=== PATIENT | female | born 1950 | race Caucasian/White ===

== ENCOUNTER → 2019-12-25 | Outpatient (CLI) | payer MEDICARE ==
[~2019-12-25] MED LIST: ATOR20TA58 PO; CALC500T54 PO; CHOL500062 PO; IOHEXOL 180 MG/ML 10 ML VIAL. ONE; LEVO125T5 PO; LISI-338 PO; LORA10TA55 PO; METF500T16 PO; MONT10TA49 PO; OMEP20CA16 PO; ROPI1TAB4 PO; SERT100T PO; methylPREDNISolone ACETATE 40 MG/ML VIAL. ONE; methylPREDNISolone ACETATE 80 MG/ML VIAL. ONE
--- NOTE | 2019-12-25 14:26 | PAIN ---
DATE OF SERVICE: 12/25/2019 INITIAL CONSULTATION FOR PAIN CLINIC CHIEF COMPLAINT: Low back and right lower extremity pain. HISTORY OF PRESENT ILLNESS: This is a 69-year-old female who presents with history of pain in the low back and right lower extremity on and off in intensity for many years, but worse over the past 2 months without any specific injury or accident that she is aware of, that has been getting worse in the low back, radiating to the posterior gluteus, posterior thigh on the right side only, worse with walking, standing, changing positions, better with sitting or lying down. The patient reports it awakens her from sleep about every 4 hours or so, but does not cause any incontinence. It does cause some increased urgency, but no loss of bowel or bladder control. The patient reports it does affect her ability to walk significantly when she using a cane and has it with her today which she holds in her left hand. The patient reports the pain is constant, shooting with tingling in the low back and right leg, aching with radiation into the leg, rates her disability rating from 0-10, 10 being the worst, is a 10 with family and home responsibilities, 6 with recreation, 9 with social activity, self-care and life support activities, 8 with occupation, 0 with sexual behavior. The patient did have a MRI scan of the lumbar spine showing disk space narrowing at L5-S1, 7 mm of anterolisthesis of L5 with the focal left paracentral disk extrusion, proceeded cephalad to the disk space. The patient reports no loss of motor function, but significant fatigability of the right lower extremity with walking, standing, changing positions, better with sitting or resting. The patient has had epidural injections in the past, physical therapy, exercise, all of which have helped decrease the pain, is also taking ropinirole and Tylenol, which decreases the pain the most. She has tried other muscle relaxants, but tizanidine is also helped in the past. The patient reports most recent epidural injection was in 2019, she believes in the summertime. PAST MEDICAL HISTORY: Significant for type 2 diabetes, dizziness, arthritis, gastroesophageal reflux. PAST SURGICAL HISTORY: Previous surgeries include hysterectomy, thyroidectomy, carpal tunnels, ankle pinning bilaterally, and plates in the left foot, knee arthroscopy on the right in 2013 and 2017, cataract extraction, and oophorectomy in the past. CURRENT MEDICATIONS: Include omeprazole, ropinirole, sertraline, metformin, montelukast, lisinopril, calcium, levothyroxine, vitamin D, atorvastatin. ALLERGIES: THE PATIENT IS ALLERGIC TO NAPROXEN. FAMILY HISTORY: Significant for cancers. SOCIAL HISTORY: The patient does not drink alcohol, does not smoke, does not use any illegal, illicit or recreational drugs. The patient is , lives locally in [place], [place], and is currently retired. REVIEW OF SYSTEMS: The patient's review of systems is positive for those items mentioned in history of present illness. All systems reviewed and otherwise negative. It is complete, full and well documented on the patient's chart. PHYSICAL EXAMINATION: VITAL SIGNS: The patient's blood pressure is 136/85, pulse 67, respirations 18, temperature 97.9 degrees Fahrenheit, height is 5 feet, weight is 191 pounds. GENERAL: The patient is awake, alert, oriented, appropriate, very pleasant demeanor. HEENT: Shows normocephalic, atraumatic. Extraocular movements are intact and symmetrical. Oral cavity: Mucous membranes moist and pink. Dentition is intact. NECK: Shows anterior throat supple without palpable lymphadenopathy noted. Swallow reflex symmetrical. CHEST: Shows normal on inspection. Breath sounds are clear bilaterally. HEART: Shows S1, S2 clear. No murmurs auscultated. ABDOMEN: Soft, nontender, nondistended. No palpable organomegaly is noted. No rebound or guarding demonstrated. BACK: Shows spine grossly in the midline. Normal appearing thoracic kyphosis and minor flattening of the lumbar lordotic curvature. Lumbar paraspinous muscle shows symmetrical on inspection. On palpation, some moderate tenderness diffusely bilaterally, but only diffusely without significant radiation. The patient has good rotational motion of lumbar spine, both laterally as well as extension and flexion without significant pain reported. EXTREMITIES: The patient's lower extremities show deep tendon reflexes at 1+ in the patellar and tendo calcaneus tendons are equal. Motor exam is strong with approximately 4 on a scale of 5 on the right, but 5/5 on the left with dorsiflexion, extension, quadriceps and hamstring flexion. Peripheral pulses are 1+ posterior tibia. No peripheral edema is noted. Lower extremities are warm and dry to touch, equal in color and appearance. Straight leg raise noted to be positive on the right about 40 degrees and negative on the left. Gaenslen's and Wilner's maneuvers are negative bilaterally. The patient is able to stand, stand on her toes without difficulty or loss of balance, walks with a cane again in her left hand and has a fairly significant limp and favoring gait, favoring the right lower extremity with ambulation. SKIN: Shows warm and dry, good turgor. No edema. No sores, rashes or bruising throughout. IMPRESSION: This is a 69-year-old female with: 1. Approximate 2-month history of increasing pain, low back, right lower extremity in a radicular fashion. 2. MRI scan of lumbar spine as noted. 3. Arthritis. 4. Diabetes. PLAN: Options were discussed with the patient including conservative medical managements, physical therapies, and interventional techniques. She would like to proceed with interventional techniques. We discussed a lumbar epidural steroid injection using description as well as anatomical models to describe the procedure. The risks were then discussed including, but not limited to bleeding, infection, possibility of epidural hematoma, subsequent neurological compromise, dural puncture, headaches, spinal cord and/or nerve damage, side effects of steroid medication and poor results regarding pain control. The patient understands and wished to proceed. The patient will return to the clinic in approximately 2 weeks for followup. She was counseled of her return appointment, activity level and side effects to be aware of. DIAGNOSIS: Lumbar radiculopathy with lumbar degenerative disk disease. PROCEDURE: Lumbar epidural steroid injection, translaminar approach, L5-S1 level using C-arm fluoroscopic guidance under sterile prep and drape using local anesthetic. MEDICATION INJECTED: A total of 120 mg of Depo-Medrol plus 10 mL of preservative-free normal saline and 2 mL of contrast. CONDITION AT DISCHARGE: Stable. The patient tolerated the procedure well, had no complications. HEATHER LEON MD DR: KARIME/doug JOB#: [id number] / [id number] DEBI Wang MD
== END ==
LOC: PNCL 09:03
PROVIDERS: ATTEND Anesthesiology
DX: M51.16 Intervertebral disc disorders with radiculopathy, lumbar region (principal); E11.9 Type 2 diabetes mellitus without complications; K21.9 Gastro-esophageal reflux disease without esophagitis; E89.0 Postprocedural hypothyroidism; Z87.39 Personal history of other diseases of the musculoskeletal system and connective tissue; Z90.710 Acquired absence of both cervix and uterus; Z90.721 Acquired absence of ovaries, unilateral; Z98.49 Cataract extraction status, unspecified eye; Z88.8 Allergy status to other drugs, medicaments and biological substances; Z79.84 Long term (current) use of oral hypoglycemic drugs; Z96.1 Presence of intraocular lens
CPT/HCPCS: 62323; J1030; J1040; Q9965

== ENCOUNTER → 2021-02-11 | Outpatient (CLI) | payer MEDICARE ==
[~2021-02-11] MED LIST changes: -IOHEXOL 180 MG/ML 10 ML VIAL. ONE; -LISI-338 PO; +LISI-517 PO; +LORA-169 PO; -LORA10TA55 PO; -methylPREDNISolone ACETATE 40 MG/ML VIAL. ONE; -methylPREDNISolone ACETATE 80 MG/ML VIAL. ONE
[2021-02-11] MEDS: REGADENOSON 0.4 MG/5 ML DISP.SYRIN. IV ONE (09:30)
--- NOTE | 2021-02-11 15:49 | RAD ---
MR#: [id number] Date of Study: 02/11/2021 Ordering Physician: ASTON BRANDON, Referring Physician: IRENE GUY Tech: RT Zhang (R) (N) APPROVED REPORT Test Type: Pharmacological Stress Nurse/Tech: GAMALIEL MUSTAFA Test Indications: LUGO Cardiac History: SEE EMR Medications: SEE EMR Medical History: SEE EMR Resting ECG: SR Resting Heart Rate: 56 bpm Resting Blood Pressure: 136/75mmHg Pretest Chest Pain: No chest pain Nurse/Tech Notes S1,S2, LUNGS CTA, DENIED CP OR SOA. VSS. Consent: The procedure was explained to the patient in lay terms. Informed consent was witnessed. Jeramy eout was entered into [employer]. History and Stress Test performed by RT Fabio (R) (N) Pharm. Details Pharmacologic stress testing was performed using 0.4mg per 5ml of regadenoson given intravenously ove r 7-10 seconds. Stress Symptoms PT C/O A BRIEF EPISODE OF SOA, SYMPTOM SUBSIDED QUICKLY. DENIED CP. VSS. PT TOLERATED WELL. POST EXERCISE Reason for Termination: Infusion complete Max HR: 83 bpm Max Blood Pressure: 137/67mmHg Blood Pressure response to exercise: Normal blood pressure response during stress. Heart Rate response to exercise: WNL Chest Pain: No. Arrhythmia: No. ST Change: No. NO SIGNIFICANT CHANGES NOTED FROM BASELINE EKG. INTERPRETATION Stress EKG Conclusion: Baseline EKG showed sinus rhythm. No ischemic changes at peak stress. No arr hythmias. Imaging Protocol IMAGE PROTOCOL: Rest Tc-99m/stress Tc-99m 1 day Rest: Stress: Viability: Radiopharm.Tc99m EzlvmwlorGy42x Sestamibi Bldo08jDg 32.3mCi Duration 13min. 13min. Img Date 02/11/2021 02/11/2021 Inj-Img Rayu61cth. 60min. Rest Admin Site:IV - Right AntecubitalAdministrator:RT Zhang (R)(N) Stress Admin Site: IV - Right AntecubitalAdministrator: Moody Baldwin, RT (R)(N) STRESS DATA End Diast. Vol.74.0mlLVEDV index BSA41.0ml End Syst. Vol.15.0mlLVESV index BSA8.0ml Myocardial Hfsf889.0gEject. Pznijphs12.0% Stress Scores Regional WT0.00Summed WT0.00 Regional WM0.00Summed WM0.00 Study quality was good. Left Ventricular size was Normal at Rest and Stress. Lung uptake was . Left Ventricular ejection fraction is 78%. The rest and stress images show normal perfusion, normal contraction and thickening. LV Perf. Quant 17 Seg. SSS1.00 17 Seg. SRS0.00 17 Seg. SDS1.00 Stress Defect Extent (% LAD)0.00Rest Defect Extent (% LAD)0.00Rev. Defect Extent (% LAD)0.00 Stress Defect Extent (% LCX) 17.50Rest Defect Extent (% LCX)0.00Rev. Defect Extent (% LCX)16.30 Stress Defect Extent (% RCA)0.00Rest Defect Extent (% RCA)0.00Rev. Defect Extent (% RCA)0.00 Stress Defect Extent (% TANNER)3.00Rest Defect Extent (% TANNER)0.00Rev. Defect Extent (% TANNER)2.80 Conclusion 1. Regadenoson cardioisotope stress test did not show any evidence of ischemia or infarct. 2. Normal left ventricular systolic function with ejection fraction calculated at 78%. 3. Low risk for cardiac events. Signed by : Aston Brandon, Electronically Approved : 02/11/2021 15:49:07
--- NOTE | 2021-02-12 13:14 | CARD ---
MR#: [id number] Date of Study: 02/11/2021 Ordering Physician: ASTON SCHUMACHER, Referring Physician: ASTON SCHUMACHER, Tech: Stacy Padilla, [facility] APPROVED REPORT EXAM: Two-dimensional and M-mode echocardiogram with Doppler and color Doppler. Other Information Quality : AverageHR: 56bpm INDICATION Dyspnea RISK FACTORS Hyperlipidemia 2D DIMENSIONS Left Atrium(2D)3.2 (1.6-4.0cm)IVSd0.8 (0.7-1.1cm) Aortic Root(2D)3.1 (2.0-3.7cm)LVDd4.1 (3.9-5.9cm) LVOT Diameter2.0 (1.8-2.4cm)PWd0.8 (0.7-1.1cm) LVDs2.4 (2.5-4.0cm) Aortic Valve AoV Peak Todd.141.6cm/sAoV VTI31.5cm AO Peak GR.8.0mmHgLVOT Peak Todd.122.0cm/s LVOT VTI 27.26cmAO Mean GR.4mmHg Mitral Valve MV E Llfwqlsn65.4cm/sMV DECEL JWAT482un MV A Mbdbraox99.1cm/sMV NMC90zx E/A Ratio1.3MVA (PHT)4.63cm2 TDI E/Lateral E'7.2E/Medial E'8.1 Pulmonary Valve PV Peak Adjevjes40.1cm/sPV Peak Grad.4mmHg Tricuspid Valve TR P. Wnwvvznt291fp/sRAP WRTSZPHQ3mzWx TR Peak Gr.98zdSrAKVA78zfUo Pulmonary Vein S1 Hjociety60.1cm/sD2 Rxkjcygh54.5cm/s PVa bjkqfjfy935drea LEFT VENTRICLE The left ventricle is normal size. There is normal left ventricular wall thickness. The left ventricu lar systolic function is normal. The Ejection Fraction is 55-60%. There is normal LV segmental wall m otion. RIGHT VENTRICLE The right ventricle is normal size. There is normal right ventricular wall thickness. The right ventr icular systolic function is normal. ATRIA The left atrium size is normal. The right atrium size is normal. The interatrial septum is intact wit h no evidence for an atrial septal defect or patent foramen ovale as noted on 2-D or Doppler imaging. AORTIC VALVE The aortic valve is normal in structure and function. Doppler and Color Flow revealed trace aortic re gurgitation. There is no significant aortic valvular stenosis. Calculated aortic valve area is 2.57 c m2 with maximum pressure gradient of 10 mmHg and mean pressure gradient of 5 mmHg. MITRAL VALVE The mitral valve is normal in structure and function. There is no evidence of mitral valve prolapse. There is no mitral valve stenosis. Doppler and Color Flow revealed no mitral valve regurgitation note d. TRICUSPID VALVE The tricuspid valve is normal in structure and function. Doppler and Color Flow revealed trace tricus pid regurgitation with an estimated PAP of 24 mmHg. There is no tricuspid valve stenosis. PULMONIC VALVE The pulmonic valve is not well visualized. Doppler and Color Flow revealed trace pulmonic valvular re gurgitation. GREAT VESSELS The aortic root is normal in size. The IVC is normal in size and collapses >50% with inspiration. PERICARDIAL EFFUSION There is no evidence of significant pericardial effusion. Critical Notification Critical Value: No <Conclusion> The left ventricular systolic function is normal. The Ejection Fraction is 55-60%. There is normal LV segmental wall motion. Trace tricuspid regurgitation with an estimated PAP of 24 mmHg. There is no evidence of significant pericardial effusion. Signed by : Aston Schumacher, Electronically Approved : 02/12/2021 13:14:23
== END ==
LOC: NM 08:35
PROVIDERS: ATTEND Internal Medicine Cardiovascular Disease
DX: R06.09 Other forms of dyspnea (principal)
CPT/HCPCS: 78452; 93017; 93306; A9500; J2785